=== PATIENT | male | born 1980 | race Caucasian/White ===

== ENCOUNTER 2020-07-23 09:29 | Emergency (ER) | payer SELFPAY ==
[2020-07-23] MEDS ORDERED: ONDANSETRON HCL INJ/PF 4 MG/2 ML SDV IV ONE (09:54)
[2020-07-23 10:12] LABS: ABSOLUTE BASOPHILS # (AUTO) 0.1 10^3/uL (0.0-0.2); ABSOLUTE EOSINOPHILS # (AUTO) 0.1 10^3/uL (0.0-0.6); ABSOLUTE LYMPHOCYTES (AUTO) 3.4 10^3/uL (0.5-4.7); ABSOLUTE MONOCYTES (AUTO) 0.5 10^3/uL (0.1-1.4); ABSOLUTE NEUT (AUTO) 3.9 10^3/uL (1.7-8.2); BASOPHILS % (AUTO) 0.7 % (0-2); EOSINOPHILS % (AUTO) 1.2 % (0-6); HEMATOCRIT 43.1 % (37.9-51.0); HEMOGLOBIN 15.5 g/dL (13.5-17.0); LYMPHOCYTES % (AUTO) 42.9 % (13-45); MEAN CORPUSCULAR HEMOGLOBIN 29.9 pg (27.0-33.4); MEAN CORPUSCULAR HGB CONC 35.9 g/dL (32.0-36.0); MEAN CORPUSCULAR VOLUME 83 fl (80-97); MONOCYTES % (AUTO) 6.5 % (3-13); PLATELET COUNT 340 10^3/uL (150-450); RED BLOOD COUNT 5.17 10^6/uL (4.35-5.55); RED CELL DISTRIBUTION WIDTH 12.4 % (11.5-14.0); SEGMENTED NEUTROPHILS % (AUTO) 48.7 % (42-78); TOTAL CELLS COUNTED % (AUTO) 100 %
[2020-07-23 10:36] LABS: ALBUMIN 4.8 g/dL (3.5-5.0); ALKALINE PHOSPHATASE 79 U/L (38-126); ANION GAP 12 (5-19); ASPARTATE AMINO TRANSFERASE 22 U/L (17-59); BILIRUBIN,DIRECT 0.2 mg/dL (0.0-0.4); BILIRUBIN,TOTAL 0.9 mg/dL (0.2-1.3); BLOOD UREA NITROGEN 17 mg/dL (7-20); CALCIUM 10.1 mg/dL (8.4-10.2); CARBON DIOXIDE 21 mmol/L (22-30); CHLORIDE 105 mmol/L (98-107); GLUCOSE 158 mg/dL (75-110); TOTAL PROTEIN 7.5 g/dL (6.3-8.2)
[2020-07-23] MEDS ORDERED: MORPHINE SULFATE 10 MG/ML INJ IV ONE (10:46)
[2020-07-23] MEDS ORDERED: NORMAL SALINE 1000 ML 1,000 ML IV ONE (10:46)
--- NOTE | 2020-07-23 11:01 | ER Document Report ---
ED GI/ - General Chief Complaint: Abdominal Pain Stated Complaint: ABDOMINAL PAIN,VOMITING Time Seen by Provider: 07/23/20 10:28 Notes: CHIEF COMPLAINT: Abdominal pain, vomiting, diarrhea HPI: 40-year-old male presenting with right-sided abdominal pain with multiple episodes of vomiting and diarrhea this morning. Describes it as a sharp c onstant pain more focused in the right lower quadrant region. No prior history of similar discomfort. ROS: See HPI - all other systems were reviewed and are otherwise negative Constitutional: no fever Eyes: no drainage, no blurred vision ENT: no runny nose, no sore throat Cardiovascular: no chest pain Resp: no SOB, no cough GI: Positive vomiting, + positive diarrhea, positive abdominal pain : no dysuria Integumentary: no rash Allergy: no hives Musculoskeletal: no extremity pain or swelling Neurological: no numbness/tingling, no weakness MEDICATIONS: I agree with the patient medications as charted by the RN. ALLERGIES: I agree with the allergies as charted by the RN. PAST MEDICAL HISTORY/PAST SURGICAL HISTORY: Reviewed and agree as charted by RN. SOCIAL HISTORY: Reviewed and agree as charted by RN. FAMILY HISTORY: No significant familial comorbid conditions directly related to patient complaint EXAM: Reviewed vital signs as charted by RN. CONSTITUTIONAL: Alert and oriented and responds appropriately to questions. Uncomfortable-appearing; well-nourished HEAD: Normocephalic; atraumatic EYES: PERRL; Conjunctivae clear, sclerae non-icteric ENT: normal nose; no rhinorrhea; moist mucous membranes; pharynx without lesions noted, no uvula edema or deviation, no tonsillar hypertrophy, phonation normal NECK: Supple without meningismus; non-tender; no cervical lymphadenopathy, no masses CARD: RRR; no murmurs, no clicks, no rubs, no gallops; symmetric distal pulses RESP: Normal chest excursion without splinting or tachypnea; breath sounds clear and equal bilaterally; no wheezes, no rhonchi, no rales, pulse oximetry 98% on room air not hypoxic ABD/GI: Normal bowel sounds; non-distended; soft, moderate tenderness in both the right lower quadrant and right upper quadrant on palpation, no rebound, no guarding; no palpable organomegaly or masses. BACK: The back appears normal and is non-tender to palpation, there is no CVA tenderness EXT: Normal ROM in all joints; non-tender to palpation; no cyanosis, no effusions, no edema SKIN: Normal color for age and race; warm; dry; good turgor; no acute lesions noted NEURO: Moves all extremities equally; Motor and sensory function intact PSYCH: The patient's mood and manner are appropriate. Grooming and personal hygi fahad are appropriate. MDM: 40-year-old male presenting with fairly sudden onset of right-sided abdom inal pain with vomiting and diarrhea today. Differential is large would include cholecystitis appendicitis or kidney stone. Will keep patient n.p.o. obtain CT imaging to better differentiate surgical versus infectious process The patient was evaluated during the global COVID-19 pandemic and that diagnosis was suspected/considered upon their initial presentation. Their evaluation, treatment and testing was consistent with current guidelines for patients who present with complaints or symptoms that may be related to COVID-19 - Related Data Allergies/Adverse Reactions: No Known Allergies Allergy (Unverified 07/23/20 09:56) Past Medical History - Social History Smoking Status: Current Every Day Smoker Chew tobacco use (# tins/day): No Frequency of alcohol use: None Drug Abuse: Marijuana Family History: Reviewed & Not Pertinent Physical Exam - Vital signs Vitals: Pulse BP Pulse Ox 62 148/104 H 100 07/23/20 09:33 07/23/20 09:33 07/23/20 09:33 Course - Re-evaluation Re-evalutation: 07/23/20 14:23 Patient looks and feels better. I discussed findings with him CT imaging was negative for acute findings. His lipase is elevated at 617 but this may have been from vomiting. He had no signs of pancreatitis on CT imaging. Patient and his now indicate that all of the children at home over the last several weeks have had a viral gastroenteritis. They are not concerned for Covid. Patient likely has a viral etiology. We will place him on Bentyl, Phenergan, follow-up PCP or GI. He is aware he needs to have his lipase rechecked. - Vital Signs Vital signs: Temp Pulse Resp BP Pulse Ox 97.9 F 62 148/104 H 100 07/23/20 10:39 07/23/20 09:33 07/23/20 09:33 07/23/20 09:33 - Laboratory Results Result Diagrams: 07/23/20 09:45 07/23/20 09:45 Laboratory Results Interpreted: 07/23/20 07/23/20 07/23/20 09:45 09:45 11:05 Carbon Dioxide 21 L Glucose 158 H Lipase 619.8 H Urine Protein 30 H Urine Blood LARGE H Ur Leukocyte Esterase MODERATE H Critical Laboratory Results Reviewed: No Critical Results - Radiology Results Critical Radiology Results Reviewed: No Critical Results Discharge - Discharge Clinical Impression: Abdominal pain, right lower quadrant, Vomiting and diarrhea, Elevated lipase Condition: Stable Disposition: HOME, SELF-CARE Additional Instructions: Take Phenergan for nausea vomiting, Bentyl for abdominal pain or spasm. Hydrate well at home. Your CT imaging did not show acute findings today. Your lipase was slightly elevated today this needs to be rechecked with your primary care provider to ensure that it returns to normal. You have been given a referral to gastroenterology should you need to follow-up for any continued abdominal issues. Prescriptions: Dicyclomine HCl [Bentyl 20 mg Tablet] 20 mg PO Q6H PRN #20 tablet PRN Reason: Promethazine HCl [Phenergan 25 mg Tablet] 1 tab PO Q6H PRN #15 tablet PRN Reason: Referrals: MELODY RAMIREZ MD [ACTIVE STAFF] - Follow up as needed
[2020-07-23] MEDS ORDERED: PROMETHAZINE HCL INJ 25 MG/1 ML VIAL IV ONE (11:25)
[2020-07-23 11:36] LABS: APPEARANCE,URINE SLIGHTLY-CLOUDY; BILIRUBIN,URINE NEGATIVE (NEGATIVE); COLOR,URINE YELLOW; GLUCOSE, URINE NEGATIVE (NEGATIVE); KETONES,URINE NEGATIVE (NEGATIVE); LEUKOCYTE ESTERASE,URINE MODERATE (NEGATIVE); NITRITE,URINE NEGATIVE (NEGATIVE); PROTEIN,URINE 30 mg/dL (NEGATIVE); URINE SPECIFIC GRAVITY 1.019; UROBILINOGEN,URINE NEGATIVE mg/dL (<2.0)
--- NOTE | 2020-07-23 13:51 | RADIOLOGY REPORT (SQ) ---
EXAM DESCRIPTION: CT ABD/PELVIS WITH IV ORAL IMAGES COMPLETED DATE/TIME: 07/23/2020 1:38 pm REASON FOR STUDY: RLQ pain COMPARISON: None. TECHNIQUE: CT scan of the abdomen and pelvis performed using helical scanning technique with dynamic intravenous contrast injection. Oral contrast. Images reviewed with lung, soft tissue, and bone win dows. Reconstructed coronal and sagittal MPR images reviewed. Delayed images for evaluation of the ur inary system also acquired. All images stored on PACS. All CT scanners at this facility use dose modulation, iterative reconstruction, and/or weight based d osing when appropriate to reduce radiation dose to as low as reasonably achievable (ALARA). [facility]: Dose Right [facility]: CareDose [facility]: Dose Right [facility]: Teradose 4D [facility]: [facility]Tap CONTRAST TYPE AND DOSE: contrast/concentration: Isovue 350.00 mmol/ml; Total Contrast Delivered: 94. 0 ml; Total Saline Delivered: 71.0 ml RENAL FUNCTION: BUN 17 creatinine 0.9 RADIATION DOSE: CT Rad equipment meets quality standard of care and radiation dose reduction techniq ues were employed. CTDIvol: 6.6 - 9.0 mGy. DLP: 856 mGy-cm.. LIMITATIONS: None. FINDINGS: LOWER CHEST: Mild dependent atelectasis in the lower lobes. LIVER: Normal size. No masses. No dilated ducts. SPLEEN: Normal size. No focal lesions. PANCREAS: No masses. No significant calcifications. No adjacent inflammation or peripancreatic fluid collections. Pancreatic duct not dilated. GALLBLADDER: No identified stones by CT criteria. No inflammatory changes to suggest cholecystitis. ADRENAL GLANDS: No significant masses or asymmetry. RIGHT KIDNEY AND URETER: No solid masses. No significant calcifications. No hydronephrosis or hyd roureter. LEFT KIDNEY AND URETER: No solid masses. No significant calcifications. No hydronephrosis or hydr oureter. AORTA AND VESSELS: No aneurysm. No dissection. Renal arteries, SMA, celiac without stenosis. RETROPERITONEUM: No retroperitoneal adenopathy, hemorrhage or masses. BOWEL AND PERITONEAL CAVITY: No masses or inflammatory changes. No free fluid or peritoneal masses. APPENDIX: Normal. PELVIS: No mass. No free fluid. Normal bladder. ABDOMINAL WALL: Uncomplicated left inguinal hernia. BONES: No significant or acute findings. OTHER: No other significant finding. IMPRESSION: No acute finding in the abdomen or pelvis. The appendix is normal. There is an uncompl icated left inguinal hernia. TECHNICAL DOCUMENTATION: JOB ID: [id number] Quality ID # [id number]: Final reports with documentation of one or more dose reduction techniques (e.g., Au tomated exposure control, adjustment of the mA and/or kV according to patient size, use of iterative reconstruction technique) 2010 [employer]- All Rights Reserved Reading location - IP/workstation name: [email or web address]
[2020-07-23 14:52] VITALS: BP 114/67
== END 2020-07-23 14:51 | disposition home or self-care (01) ==
LOC: ER 09:29
DX: R10.31 Right lower quadrant pain (principal); R79.89 Other specified abnormal findings of blood chemistry; R19.7 Diarrhea, unspecified; R11.10 Vomiting, unspecified; K40.90 Unilateral inguinal hernia, without obstruction or gangrene, not specified as recurrent; R10.811 Right upper quadrant abdominal tenderness; R10.813 Right lower quadrant abdominal tenderness; F17.200 Nicotine dependence, unspecified, uncomplicated; Z20.822 Contact with and (suspected) exposure to COVID-19
CPT/HCPCS: 99285; 96361; 96374; 96375; 36415; 83690; 85025; 80053; 81001; 74177; J2270; J2550; J2405; J7030

== ENCOUNTER 2020-08-06 06:57 | Emergency (ER) | payer SELFPAY ==
[2020-08-06 07:19] VITALS: BP 114/70
--- NOTE | 2020-08-06 07:36 | ER Document Report ---
ED Medical Screen (RME) - General Chief Complaint: Possible Kidney Stone Stated Complaint: POSSIBLE KIDNEY STONES Time Seen by Provider: 08/06/20 07:29 Mode of Arrival: Ambulatory Information source: Patient Notes: 40-year-old presents to ED for right flank pain and now has trouble urinating. He states he had a CT with IV and oral contrast last week and he thinks that he what they were not able to see his stone now he has severe pain on the right upper abdomen down to the groin and now he has not had any urine since 2 AM. He states he feels like he is blocked up. He is alert oriented respirations regular nonlabored speaking in full sentences. He states he does not smoke cigarettes or use alcohol but he does smoke weed. He is alert oriented respirations regular nonlabored speaking in full sentences. I have given him a cup to get a urine if he has any urine and then have ordered blood and a noncontrasted CT. I have greeted and performed a rapid initial assessment of this patient. A comprehensive ED assessment and evaluation of the patient, analysis of test results and completion of medical decision making process will be conducted by an additional ED providers. - Related Data Allergies/Adverse Reactions: No Known Allergies Allergy (Unverified 07/23/20 09:56) Physical Exam - Vital signs Vitals: Temp Pulse BP Pulse Ox 97.7 F 86 114/70 98 08/06/20 07:18 08/06/20 07:18 08/06/20 07:18 08/06/20 07:18 Course - Vital Signs Vital signs: Temp Pulse Resp BP Pulse Ox 97.7 F 86 114/70 98 08/06/20 07:18 08/06/20 07:18 08/06/20 07:18 08/06/20 07:18
[2020-08-06] MEDS ORDERED: NORMAL SALINE 1000 ML 1,000 ML IV ONE (08:17)
[2020-08-06] MEDS ORDERED: KETOROLAC TROMETHAMINE INJ/PF 30 MG/1 ML SDV IV ONE (08:17)
--- NOTE | 2020-08-06 08:18 | ER Document Report ---
ED GI/ - General Chief Complaint: Flank Pain Stated Complaint: POSSIBLE KIDNEY STONES Time Seen by Provider: 08/06/20 07:29 Mode of Arrival: Ambulatory Notes: CHIEF COMPLAINT: Right flank pain HPI: 40-year-old male with history of a prior kidney stone presenting with right flank pain over the last week. He used a teledoc visit several days ago and was placed on Flomax for 3 days. Patient states he was here a week ago for the right flank pain had a CT scan done with contrast he believes they did not see the stone at that time. Patient reports some sensation of having to pee but being unable to do so this morning. Has not had fever nausea or vomiting. ROS: See HPI - all other systems were reviewed and are otherwise negative Constitutional: no fever Eyes: no drainage, no blurred vision ENT: no runny nose, no sore throat Cardiovascular: no chest pain Resp: no SOB, no cough GI: no vomiting, no diarrhea, + abdominal pain : no dysuria, positive urgency Integumentary: no rash Allergy: no hives Musculoskeletal: no extremity pain or swelling Neurological: no numbness/tingling, no incontinence MEDICATIONS: I agree with the patient medications as charted by the RN. ALLERGIES: I agree with the allergies as charted by the RN. PAST MEDICAL HISTORY/PAST SURGICAL HISTORY: Reviewed and agree as charted by RN. SOCIAL HISTORY: Reviewed and agree as charted by RN. FAMILY HISTORY: No significant familial comorbid conditions directly related to patient complaint EXAM: Reviewed vital signs as charted by RN. CONSTITUTIONAL: Alert and oriented and responds appropriately to questions. Well-appearing; well-nourished HEAD: Normocephalic; atraumatic EYES: PERRL; Conjunctivae clear, sclerae non-icteric ENT: normal nose; no rhinorrhea; moist mucous membranes; pharynx without lesions noted, no uvula edema or deviation, no tonsillar hypertrophy, phonation normal NECK: Supple without meningismus; non-tender; no cervical lymphadenopathy, no masses CARD: RRR; no murmurs, no clicks, no rubs, no gallops; symmetric distal pulses RESP: Normal chest excursion without splinting or tachypnea; breath sounds clear and equal bilaterally; no wheezes, no rhonchi, no rales, pulse oximetry 98% on room air not hypoxic ABD/GI: Normal bowel sounds; non-distended; soft, non-tender, no rebound, no guarding; no palpable organomegaly or masses. : Circumcised male. Bilateral testicles are descended and nontender. No visible or palpable inguinal or scrotal hernia. No palpable masses. Mildly erythematous rash on the glans penis as well as through the intertriginous areas of the perineum likely yeast or fungal BACK: The back appears normal and is non-tender to palpation, there is no CVA tenderness EXT: Normal ROM in all joints; non-tender to palpation; no cyanosis, no effusions, no edema SKIN: Normal color for age and race; warm; dry; good turgor; no acute lesions noted NEURO: Moves all extremities equally; Motor and sensory function intact PSYCH: The patient's mood and manner are appropriate. Grooming and personal hygiene are appropriate. MDM: 40-year-old male with what is likely a kidney stone in the right lower abdomen on my review of his CT scan awaiting official radiology review. Aw aiting lab work and urinalysis. He has been on Flomax for 3 days. Will provide pain management IV fluids. He is having some urgency suggesting spasm. - Related Data Allergies/Adverse Reactions: No Known Allergies Allergy (Unverified 07/23/20 09:56) Past Medical History - General Information source: Patient - Social History Smoking Status: Never Smoker Drug Abuse: Marijuana Family History: Reviewed & Not Pertinent Physical Exam - Vital signs Vitals: Temp Pulse BP Pulse Ox 97.7 F 86 114/70 98 08/06/20 07:18 08/06/20 07:18 08/06/20 07:18 08/06/20 07:18 Course - Re-evaluation Re-evalutation: 08/06/20 08:43 Radiologist has read the CT imaging is negative although I suspect patient likely has a kidney stone. There is no ureteral dilatation. Awaiting lab work. 08/06/20 09:48 Patient does appear to have possible urinary infection. He has no testicular pain suggesting epididymitis. I will place him on a course of Keflex I have added a urine culture. I will refer the patient to urology. I will place him on Pyridium. - Vital Signs Vital signs: Temp Pulse Resp BP Pulse Ox 97.7 F 86 114/70 98 08/06/20 07:18 08/06/20 07:18 08/06/20 07:18 08/06/20 07:18 - Laboratory Results Result Diagrams: 08/06/20 08:24 08/06/20 08:24 Laboratory Results Interpreted: 08/06/20 09:14 Urine Blood SMALL H Leukocyte Esterase Rfl MODERATE H Critical Laboratory Results Reviewed: No Critical Results - Radiology Results Critical Radiology Results Reviewed: No Critical Results Discharge - Discharge Clinical Impression: Dysuria UTI (urinary tract infection) Qualifiers: Urinary tract infection type: acute cystitis Hematuria presence: with hematuria Qualified Code(s): N30.01 - Acute cystitis with hematuria Condition: Stable Disposition: HOME, SELF-CARE Instructions: Urinary Tract Infection ([facility]) Additional Instructions: Your CT imaging today did not show evidence of a kidney stone. It does appear you have a urinary infection. You have been placed on antibiotics for this. Follow-up closely with urology and your primary care provider for reevaluation of your symptoms if they persist. Prescriptions: Cephalexin Monohydrate [Keflex 500 mg Capsule] 500 mg PO Q6H #28 capsule Phenazopyridine HCl [Pyridium 100 Mg Tablet] 100 mg PO TID #9 tablet Referrals: JENNIFER DALLAS MD [NO LOCAL MD] - Follow up as needed
--- NOTE | 2020-08-06 08:31 | RADIOLOGY REPORT (SQ) ---
EXAM DESCRIPTION: CT ABD/PELVIS NO ORAL OR IV IMAGES COMPLETED DATE/TIME: 08/06/2020 7:50 am REASON FOR STUDY: Right flank pain history of kidney stones COMPARISON: 07/23/2020. TECHNIQUE: CT scan of the abdomen and pelvis performed without intravenous or oral contrast. Images reviewed with lung, soft tissue, and bone windows. Reconstructed coronal and sagittal MPR images revi ewed. All images stored on PACS. All CT scanners at this facility use dose modulation, iterative reconstruction, and/or weight based d osing when appropriate to reduce radiation dose to as low as reasonably achievable (ALARA). [facility]: Dose Right [facility]: CareDose [facility]: Dose Right [facility]: Teradose 4D [facility]: [employer] Plot[employer] RADIATION DOSE: CT Rad equipment meets quality standard of care and radiation dose reduction techniq ues were employed. CTDIvol: 6.4 mGy. DLP: 382 mGy-cm.mGy. LIMITATIONS: None. FINDINGS: LOWER CHEST: No significant findings. No nodules or infiltrates. RIGHT KIDNEY AND URETER: No solid masses. No significant calcification. No hydronephrosis or hydroure ter. LEFT KIDNEY AND URETER: No solid masses. No significant calcification. No hydronephrosis or hydrouret er. OTHER SOLID ORGANS, BILIARY TREE AND ADRENALS: No change. Splenic granulomas. No developing lesion s. No biliary distention. No calcified gallstones. VESSELS AND RETROPERITONEUM: No aneurysm. No retroperitoneal masses or adenopathy. BOWEL AND PERITONEAL CAVITY: No obvious masses or inflammatory changes. No free fluid. APPENDIX: Normal. PELVIS, BLADDER, AND ABDOMINAL WALL:No abnormal masses. No free fluid. Bladder normal. No bowel cont aining hernias. BONES: No significant findings. OTHER: No other significant finding. IMPRESSION: NO SIGNIFICANT OR ACUTE PROCESS IN THE ABDOMEN OR PELVIS. TECHNICAL DOCUMENTATION: JOB ID: [id number] Quality ID # [id number]: Final reports with documentation of one or more dose reduction techniques (e.g., Au tomated exposure control, adjustment of the mA and/or kV according to patient size, use of iterative reconstruction technique) 2010 [employer]- All Rights Reserved Reading location - IP/workstation name: [email or web address]
[2020-08-06 08:44] LABS: ABSOLUTE EOSINOPHILS # (AUTO) 0.2 10^3/uL (0.0-0.6); ABSOLUTE LYMPHOCYTES (AUTO) 2.4 10^3/uL (0.5-4.7); ABSOLUTE MONOCYTES (AUTO) 0.4 10^3/uL (0.1-1.4); ABSOLUTE NEUT (AUTO) 3.4 10^3/uL (1.7-8.2); BASOPHILS % (AUTO) 0.7 % (0-2); EOSINOPHILS % (AUTO) 2.6 % (0-6); HEMATOCRIT 40.3 % (37.9-51.0); HEMOGLOBIN 14.3 g/dL (13.5-17.0); LYMPHOCYTES % (AUTO) 37.6 % (13-45); MEAN CORPUSCULAR HEMOGLOBIN 29.8 pg (27.0-33.4); MEAN CORPUSCULAR HGB CONC 35.6 g/dL (32.0-36.0); MEAN CORPUSCULAR VOLUME 84 fl (80-97); MONOCYTES % (AUTO) 5.9 % (3-13); PLATELET COUNT 266 10^3/uL (150-450); RED BLOOD COUNT 4.81 10^6/uL (4.35-5.55); RED CELL DISTRIBUTION WIDTH 12.3 % (11.5-14.0); SEGMENTED NEUTROPHILS % (AUTO) 53.2 % (42-78); TOTAL CELLS COUNTED % (AUTO) 100 %; WHITE BLOOD COUNT 6.4 10^3/uL (4.0-10.5)
[2020-08-06 09:02] LABS: ALBUMIN 4.2 g/dL (3.5-5.0); ALKALINE PHOSPHATASE 61 U/L (38-126); ANION GAP 5 (5-19); ASPARTATE AMINO TRANSFERASE 27 U/L (17-59); BILIRUBIN,DIRECT 0.1 mg/dL (0.0-0.4); BLOOD UREA NITROGEN 20 mg/dL (7-20); CALCIUM 9.5 mg/dL (8.4-10.2); CARBON DIOXIDE 26 mmol/L (22-30); CHLORIDE 107 mmol/L (98-107); GLUCOSE 106 mg/dL (75-110); POTASSIUM 4.7 mmol/L (3.6-5.0)
[2020-08-06 09:45] LABS: APPEARANCE,URINE CLEAR; BILIRUBIN,URINE NEGATIVE (NEGATIVE); COLOR,URINE YELLOW; GLUCOSE, URINE NEGATIVE (NEGATIVE); KETONES,URINE NEGATIVE (NEGATIVE); PROTEIN,URINE NEGATIVE (NEGATIVE); URINE SPECIFIC GRAVITY 1.021; UROBILINOGEN,URINE NEGATIVE mg/dL (<2.0)
[2020-08-06] MEDS ORDERED: CEPHALEXIN 500 MG CAPSULE PO ONE (09:51)
[2020-08-06] MEDS ORDERED: PHENAZOPYRIDINE HCL 200 MG TABLET PO ONE (09:51)
== END 2020-08-06 10:07 | disposition home or self-care (01) ==
LOC: ER 06:57
DX: N30.01 Acute cystitis with hematuria (principal); R10.9 Unspecified abdominal pain; R21 Rash and other nonspecific skin eruption; F12.10 Cannabis abuse, uncomplicated; Z87.442 Personal history of urinary calculi
CPT/HCPCS: 99285; 96361; 96374; 36415; 87086; 85025; 80053; 81001; 74176; J1885; J3490; J7030